=== PATIENT | female | born 1980 | race Caucasian/White ===

== ENCOUNTER → 2021-08-27 | Outpatient (CLI) | payer OTHER ==
[2015-03-23 16:58] VITALS: BP 120/65
[~2021-08-27] MED LIST: LEVO88TA70 PO
--- NOTE | 2021-08-28 09:18 | KCIC ---
Exam Date: 08/27/2021 2:00 PM MRI RIGHT LOWER EXTREMITY JOINT WITHOUT Indication: Reason: INVERSION SPRAIN OF RT ANKLE, PERONEAL TENDINITIS, ANKLE INSTABILITY / Spl. Instr uctions: / History: Chronic right ankle pain laterally and across anterior jointline.. TECHNIQUE: Multiplanar MR images of the ankle without intravenous contrast. FINDINGS: The anterior and posterior talofibular ligaments are intact. The anterior and posterior tibiofibular ligaments are intact. The calcaneofibular ligament is not well visualized. The deltoid and spring ligaments are intact. Lisfranc ligament is intact. The posterior tibial tendon, flexor digitorum longus tendon, and flexor hallucis longus tendon are in tact and within normal limits. The peroneal tendons are intact. Visualized extensor tendons are int act. Achilles tendon is intact and within normal limits. 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 There is an unfused os trigonum. Scattered degenerative marrow signal is seen elsewhere i n the hindfoot. Talar dome is intact. There is no acute fracture. The tarsal tunnel, sinus tarsi and plantar fascia are within normal limits. 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 Intact ligaments and tendons. No acute fracture. Electronically signed by: Simone Nguyen MD (08/28/2021 9:15 AM) [id number]
== END ==
LOC: KCIC MRI 13:47
PROVIDERS: ATTEND Podiatrist
DX: S93.401A Sprain of unspecified ligament of right ankle, initial encounter (principal); M19.071 Primary osteoarthritis, right ankle and foot; M25.471 Effusion, right ankle; M76.71 Peroneal tendinitis, right leg; M25.371 Other instability, right ankle; X58.XXXA Exposure to other specified factors, initial encounter; Y93.89 Activity, other specified; Y92.89 Other specified places as the place of occurrence of the external cause; Y99.8 Other external cause status
CPT/HCPCS: 73721